=== PATIENT | male | born 1945 | race Caucasian/White ===

== ENCOUNTER → 2021-04-21 09:58 | Outpatient (CLI) | payer MEDICARE, SELFPAY | PROVIDERS: PCP Internal Medicine; Referring Provider Internal Medicine; Visit Provider Internal Medicine | DX: R00.1 Bradycardia, unspecified (principal) | CPT/HCPCS: 93225; 93226 ==

== ENCOUNTER → 2021-06-01 12:52 | Outpatient (CLI) | payer MEDICARE, SELFPAY ==
--- NOTE | 2021-06-01 13:01 | ECHOD_ITS ---
Reason For Study: ARRHYTHMIA Procedure This was a 2D Doppler, Color Flow transthoracic echocardiogram. Exam performed in department. Left Ventricle Normal LV size. Left ventricular systolic function is normal. The estimated ejection fraction is 65 %. No evidence for diastolic dysfunction. No regional wall motion abnormalities noted. Right Ventricle Normal RV size. Normal systolic function. Atria Normal left atrium. The right atrium is mildly enlarged. 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 No doppler evidence for ASD. Mitral Valve There is no mitral annular calcification. Normal mitral valve. Trivial mitral valve insufficiency. Tricuspid Valve Normal tricuspid valve. Mild tricuspid valve insufficiency. Right ventricular systolic pressure estimated to be 28 mmHg. Aortic Valve Trisinus/trileaflet aortic valve. Normal aortic valve. Trivial aortic valve insufficiency. Pulmonic Valve The pulmonic valve is not well visualized. Great Vessels Normal sized aortic root. Pericardium/Pleural No pericardial effusion. MMode/2D Measurements & Calculations LVIDd: 4.4 cm IVSd: 0.77 cm Ao root diam: 3.5 cm LVIDs: 2.5 cm LVPWd: 0.81 cm RVDd: 3.9 cm FS: 43.4 % LAV(MOD-bp): 33.5 ml LA A4 area: 11.2 cm2 LA dimension(2D): 3.4 cm LAV(MOD-bp) Indexed: 17.9 ml/m2 LAV(MOD-sp2): 44.0 ml LAV(MOD-sp4): 23.7 ml RA A4 area: 18.5 cm2 Time Measurements MV dec time: 0.29 sec Doppler Measurements & Calculations MV E max matthew: 64.4 cm/sec Lat Peak E' Matthew: 11.8 cm/sec Med Peak E' Matthew: 9.8 cm/sec MV A max matthew: 73.1 cm/sec E/E' lat: 5.5 E/E' med: 6.6 MV E/A: 0.88 Ao V2 max: 133.7 cm/sec LV V1 max: 123.2 cm/sec PA V2 max: 150.0 cm/sec Ao max P.2 mmHg LV V1 max P.1 mmHg TR max matthew: 252.2 cm/sec TR max P.4 mmHg ECHO/Echo Complete Interpretation Summary Left ventricular systolic function is normal. The estimated ejection fraction is 65 %. The right atrium is mildly enlarged. 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 Trivial mitral valve insufficiency. Mild tricuspid valve insufficiency. Trivial aortic valve insufficiency. Right ventricular systolic pressure estimated to be 28 mmHg. No evidence for diastolic dysfunction. Ordering Physician: Karlos Braden Referring Physician: Sandra Berkowitz Performed By: Deepti Malik, LOREE, RVT
== END ==
PROVIDERS: PCP Internal Medicine; Referring Provider Internal Medicine Cardiovascular Disease; Visit Provider Internal Medicine Cardiovascular Disease
DX: I49.3 Ventricular premature depolarization (principal)
CPT/HCPCS: 93306

== ENCOUNTER → 2025-05-01 | Outpatient (CLI) | payer MEDICARE, SELFPAY ==
--- NOTE | 2025-05-01 13:32 | EKG12_ITS ---
Test Reason : SVT Blood Pressure : */* mmHG Vent. Rate : 65 BPM Atrial Rate : 65 BPM P-R Int : 176 ms QRS Dur : 92 ms QT Int : 414 ms P-R-T Axes : 58 97 55 degrees QTcB Int : 430 ms Normal sinus rhythm Rightward axis Borderline ECG Confirmed by Alen Luevano ([id number]), make up editor ORESTES MARIE ([id number]) on 05/02/2025 5:51:43 AM Referred By: Sandra Berkowitz Confirmed By: Alen Luevano
--- NOTE | 2025-05-01 13:32 | EKG12_ITS ---
Test Reason : SVT Blood Pressure : */* mmHG Vent. Rate : 65 BPM Atrial Rate : 65 BPM P-R Int : 176 ms QRS Dur : 92 ms QT Int : 414 ms P-R-T Axes : 58 97 55 degrees QTcB Int : 430 ms Normal sinus rhythm Rightward axis Borderline ECG Confirmed by Alen Luevano ([id number]), editor house organ ORESTES MARIE ([id number]) on 05/02/2025 5:51:43 AM Referred By: Sandra Berkowitz Confirmed By: Alen Luevano
== END | disposition home or self-care (01) ==
LOC: PSN 13:28
PROVIDERS: PCP Internal Medicine; Referring Provider Internal Medicine; Visit Provider Internal Medicine
DX: I47.10 Supraventricular tachycardia, unspecified (principal)
CPT/HCPCS: 93005